=== PATIENT | female | born 1985 ===

== ENCOUNTER 2018-04-06 11:47 | Emergency (ER) | payer SELFPAY ==
[2018-04-06 12:34] VITALS: BP 112/67
--- NOTE | 2018-04-06 12:51 | UC ---
UC General HPI - HPI Summary HPI Summary: fatigue and weakness x 2 weeks has been working extra lately with 2 jobs has changed her diet, eating less and decrease in red meet and fat has been tired all day , cannot get enough sleep no cold sx, no cold, no fever or chills, no n/v/d + mild constipation - History of Current Complaint Chief Complaint: UCGeneralIllness Stated Complaint: WEAKNESS FATIGUE Time Seen by Provider: 04/06/18 12:32 Hx Obtained From: Patient Hx Last Menstrual Period: Onset/Duration: Gradual Onset, Lasting Weeks - 2, Still Present Timing: Constant Onset Severity: Moderate Current Severity: Moderate Pain Intensity: 0 Associated Signs & Symptoms: Positive: Dizziness, Weakness. Negative: Agitation , Abdominal Pain, Anticoagulation Therapy, Back Pain, Confusion, Cough, Diarrhea , Dysuria, Diaphoresis, Headache, Palpitations, SOB - Allergy/Home Medications Allergies/Adverse Reactions: Allergies Allergy/AdvReac Type Severity Reaction Status Date / Time No Known Allergies Allergy Verified 04/06/18 12:35 Home Medications: Home Medications Multivitamins/Minerals TAB* [Theragran/minerals TAB*] 1 tab PO DAILY 04/06/18 [ History Confirmed 04/06/18] PMH/Surg Hx/FS Hx/Imm Hx Previously Healthy: Yes - Surgical History Surgical History: Yes Surgery Procedure, Year, and Place: tubal ligation, x 3, tonsils, appy - Family History Known Family History: Negative: Diabetes - Social History Alcohol Use: Occasionally Substance Use Type: None Smoking Status (MU): Former Smoker Have You Smoked in the Last Year: No When Did the Patient Quit Smoking/Using Tobacco: 2012 Review of Systems Constitutional: Fatigue Skin: Negative Eyes: Negative ENT: Negative Respiratory: Negative Genitourinary: Negative Motor: Negative Is Patient Immunocompromised?: No All Other Systems Reviewed And Are Negative: Yes Physical Exam Triage Information Reviewed: Yes Vital Signs: Initial Vital Signs Temp 99.2 F 04/06/18 12:23 Pulse 69 04/06/18 12:23 Resp 18 04/06/18 12:23 BP 112/67 04/06/18 12:23 Pulse Ox 100 04/06/18 12:23 Course/Dx - Course Course Of Treatment: will check cbc, cmp , tsh - Differential Dx - Multi-Symptom Provider Diagnoses: fatigue Discharge - Sign-Out/Discharge Documenting (check all that apply): Discharge/Admit/Transfer - Discharge Plan Condition: Stable Disposition: HOME Patient Education Materials: Fatigue (ED) Forms: *Work Release Referrals: Non Staff,Doctor [Primary Care Provider] - 7 Days - Billing Disposition and Condition Condition: STABLE Disposition: HOME
[2018-04-06 19:02] LABS: ABS Basophils 0.1 10^3/ul (0-0.2); ABS Eosinophils 0 10^3/ul (0-0.6); ABS Lymphocytes 2.5 10^3/ul (1.0-4.8); ABS Monocytes 0.5 10^3/ul (0-0.8); ABS Neutrophils 5.4 10^3/ul (1.5-7.7); ABS Nucleated RBC 0 10^3/ul; Eosinophil % 0.4 % (0-6); Hematocrit 37 % (35-47); Hemoglobin 12.7 g/dl (12.0-16.0); Mean Corpuscular HGB Conc 34 g/dl (31-36); Mean Corpuscular Hemoglobin 29 pg (27-31); Mean Corpuscular Volume 85 fL (80-97); Mean Platelet Volume 8.3 um3 (7.4-10.4); Nucleated Red Blood Cells % 0; Platelet Count 413 10^3/ul (150-450); Red Blood Count 4.37 10^6/ul (4.0-5.4); Red Cell Distribution Width 13 % (10.5-15); White Blood Count 8.5 10^3/ul (3.5-10.8)
[2018-04-08 09:18] LABS: EGFR Non-African American 100.8 (>60)
== END 2018-04-06 13:20 | disposition home or self-care (01) ==
LOC: UCCORT 11:47
DX: R53.83 Other fatigue (principal); Z87.891 Personal history of nicotine dependence
CPT/HCPCS: 36415; 80053; 84443; 85025; 99201; G0463